=== PATIENT | male | born 1995 | race Caucasian/White ===

== ENCOUNTER 2023-08-04 23:35 | Emergency (ER) | payer OTHER, MEDICAID, SELFPAY ==
[2023-08-04 23:40] VITALS: BP 123/81; PULSE 103; RESP 18; TEMP 36.9; O2SAT 100; BMI 23.7
--- NOTE | 2023-08-05 00:34 | ED.DENTAL ---
HPI - Dental/Oral General Chief complaint: Dental/Oral Stated complaint: infection in mouth Time Seen by Provider: 08/05/23 00:27 Source: patient Mode of arrival: Ambulatory History of Present Illness HPI Narrative: Patient is a 28-year-old male history of poor dentition and dental abscesses presenting today with a variety of symptoms. He reports that he is having excessive saliva he has body aches his throat hurts also has upper teeth her along with his nose. He feels like there is swelling and a bump. He has been on clindamycin for 4 days. He was seen by his dentist yesterday who gave him clindamycin. He reports that he would leftover clindamycin from his last dental infection so he started it but he has not really noticed any difference. He is scared because he feels like he has excessive saliva that he might be choking on it. He does not have a fever here. Patient History Social History Smoking Status: Current every day smoker Smoking Status: Current every day smoker alcohol intake frequency: 0-2 drinks per day Substance Use Type: does not use Exam Initial Vital Signs Initial Vital Signs: Vital Signs Temperature 98.5 F 08/04/23 23:40 Pulse Rate 103 H 08/04/23 23:40 Respiratory Rate 18 08/04/23 23:40 Blood Pressure 123/81 08/04/23 23:40 Pulse Oximetry 100 08/04/23 23:40 Oxygen Delivery Method Room Air 08/04/23 23:40 GENERAL: Well-appearing, well-nourished and in no acute distress. HEENT: Head atraumatic,EOMI, pupils reactive, very poor dentition no obvious dental abscess, no obvious facial swelling no erythema PHARYNX: NO TONSILLAR EXUDATE NO UVULA SWELLING NO DEVIATION MANAGING own secretions CARDIOVASCULAR: Regular rate and rhythm without murmurs, rubs or gallops. RESPIRATORY: Breath sounds equal bilaterally, no wheezes rales or rhonchi. EXTREMITIES: Normal range of motion, no clubbing or edema. Neurovascularly intact NEUROLOGICAL: Alert and oriented x4.Normal gait and speech. SKIN: Warm, dry, no laceration, no petechiae, no rashes or lesions. Course Vital Signs Vital signs: Vital Signs - 8 hr 08/04/23 23:40 Temperature 98.5 F Pulse Rate 103 H Respiratory Rate 18 Blood Pressure 123/81 Pulse Oximetry 100 Oxygen Delivery Method Room Air MDM - Dental/Oral MDM Narrative Medical decision making narrative: Patient appears well he has obvious very poor dentition no obvious dental abscess he is already taking clindamycin he is allergic to penicillin. He is really complaining of saliva body aches and sore throat. I suspect that he has a viral syndrome talk of possible dental infection. At this time recommend supportive care [id number] medications including allergy meds. Would not change antibiotics at time without any obvious abscess or cellulitis. Recommend he continue taking clindamycin and follow-up with dentist Discharge Plan Departure Patient Disposition: Home Clinical Impression: Dental abscess, Viral illness Instructions: Tooth Abscess, Common Cold Activity Restrictions/Additional Instructions: *You have been diagnosed with dental pain and viral illness *What to do: At this time I think her excessive saliva and other symptoms maybe from a virus. I would try some upzz-oel-evzqefk medication to see if it will help. Please continue taking your clindamycin for least 3 more days. *Continue to take medications as directed Benadryl 25-50 mg at night to help you sleep May try otkg-uyy-fthsbwg allergy medicine such as cetirizine, Claritin, or Karina Motrin 600 mg every 6 hours if needed for csgz-hr-cibylqki pain *Follow up with your primary care provider in 2-3 days or call [phone] Call and follow-up with your dentist tomorrow *Return to ER if you should have increasing redness swelling difficulty swallowing or any new, worsening or concerning symptoms Stand Alone Forms: Patient Portal/API
== END 2023-08-05 00:48 | disposition home or self-care (01) ==
PROVIDERS: Emergency Provider Emergency Medicine
DX: K04.7 Periapical abscess without sinus (principal); B34.9 Viral infection, unspecified
CPT/HCPCS: 99281; 99282